=== PATIENT | female | born 1990 | race Caucasian/White ===

== ENCOUNTER 2016-08-25 07:52 | Emergency (ER) | payer SELFPAY ==
[2016-08-25 08:51] LABS: APPEARANCE,URINE CLEAR; BILIRUBIN,URINE NEGATIVE (NEGATIVE); GLUCOSE, URINE NEGATIVE (NEGATIVE); KETONES,URINE NEGATIVE (NEGATIVE); LEUKOCYTE ESTERASE,URINE NEGATIVE (NEGATIVE); NITRITE,URINE NEGATIVE (NEGATIVE); PROTEIN,URINE NEGATIVE (NEGATIVE); URINE SPECIFIC GRAVITY 1.009; UROBILINOGEN,URINE NEGATIVE mg/dL (<2.0)
--- NOTE | 2016-08-25 09:12 | ER Document Report ---
ED General - General Mode of Arrival: Ambulatory Information source: Patient TRAVEL OUTSIDE OF THE [place] IN LAST 30 DAYS: No - HPI Patient complains to provider of: Vaginal Bleeding Onset: Yesterday Onset/Duration: Gradual, Persistent - General Chief Complaint: Vaginal Bleeding Stated Complaint: VAGINAL BLEEDING Notes: Patient is a 26-year-old female presenting to the emergency department concerned of vaginal bleeding that began yesterday. Patient states that she has been spotting lightly with intercourse, but yesterday she had to leave work early due to cramping, and subsequently passed a clot that worried her. Patient states that she believes that she is approximately 7 weeks , she bases this estimation off of her last miscarriage that occurred in mid June. Patient states that she immediately became again. Patient has no other symptoms except for cramping and vaginal bleeding. (LOGAN GONZALEZ) - Related Data Allergies/Adverse Reactions: Penicillins Allergy (Verified 08/25/16 07:59) Past Medical History - General Information source: Patient - Social History Smoking Status: Never Smoker Drug Abuse: None Lives with: Spouse/Significant other Family History: Reviewed & Not Pertinent Patient has suicidal ideation: No Patient has homicidal ideation: No Renal/ Medical History: Denies: Hx Peritoneal Dialysis Review of Systems - Review of Systems Constitutional: No symptoms reported EENT: No symptoms reported Cardiovascular: No symptoms reported Respiratory: No symptoms reported Gastrointestinal: No symptoms reported Genitourinary: No symptoms reported Female Genitourinary: See HPI, , Vaginal discharge - blood clot, Vaginal bleeding, Other - Cramping Musculoskeletal: No symptoms reported Skin: No symptoms reported Hematologic/Lymphatic: No symptoms reported Neurological/Psychological: No symptoms reported -: Yes All other systems reviewed and negative Physical Exam - Vital signs Interpretation: Normal - General General appearance: Appears well, Alert - HEENT Head: Normocephalic, Atraumatic Eyes: Normal Pupils: PERRL - Respiratory Respiratory status: No respiratory distress Chest status: Nontender Breath sounds: Normal Chest palpation: Normal - Cardiovascular Rhythm: Regular Heart sounds: Normal auscultation Murmur: No - Abdominal Inspection: Normal Bowel sounds: Normal Tenderness: Nontender - Back Back: Normal, Nontender - Extremities General upper extremity: Normal inspection, Nontender General lower extremity: Normal inspection, Nontender - Neurological Neuro grossly intact: Yes Cognition: Normal Orientation: AAOx4 Dee Coma Scale Eye Opening: Spontaneous Dee Coma Scale Verbal: Oriented [place] Coma Scale Motor: Obeys Commands [place] Coma Scale Total: 15 Speech: Normal - Psychological Associated symptoms: Normal affect, Normal mood - Skin Skin Temperature: Warm Skin Moisture: Dry Skin Color: Normal Course - Re-evaluation Re-evalutation: 08/25/16 11:26 I personally performed the services described in the documentation, reviewed and edited the documentation which was dictated to my scribe in my presence, and it accurately records my words and actions. (GEORGETTE RIOS) - Vital Signs Vital signs: Temp Pulse Resp BP Pulse Ox 98.4 F 72 16 104/67 98 08/25/16 12:05 08/25/16 12:05 08/25/16 12:05 08/25/16 12:05 08/25/16 12:05 - Laboratory Laboratory results interpreted by me: 08/25/16 09:11 Beta HCG, Quant 19.02 H Procedures - Pelvic Exam Pelvic exam Time completed: 08:22 Witnessed by: Elizabeth Titus, LILY, RN - Pelvic Exam Pelvic exam Notes: 08/25/16 08:22 min amount of dark blood, cervix closed, one blood clot noted (LOGAN GONZALEZ) Discharge - Discharge Clinical Impression: probable miscarriage Condition: Stable Disposition: HOME, SELF-CARE Additional Instructions: Vaginal Bleeding in You are having an episode of abnormal bleeding. Causes of abnormal vaginal bleeding can include miscarriage or tubal , tumors such as cancer or benign fibroids, medication effects, or hormone imbalance. Testing can eliminate unsuspected , tumors, or infection as a cause. "Dysfunctional uterine bleeding" is due to hormone imbalance, and is especially common at times when the normal cycle is disturbed -- whether by recent , use of control pills or hormones, or impending menopause. If the bleeding is innocent, most commonly a short course of hormones is given to restore the uterus to normal. Sometimes, the normal menstrual cycle corrects itself naturally. Sometimes , brief hormone therapy, or even a D&C is required. Your physician will advise you. Treatment for anemia may be required if bleeding is severe. You should rest and avoid intercourse until the bleeding is controlled. Call the doctor or return for re-examination if you feel faint, have increasing pain, or have a major increase in the amount of bleeding. Referrals: [facility] [Provider Group] - Follow up in 3-5 days (Call today to tell them that we ordered a repeat beta hCG blood work to be done in 48 hours and the results will be sent to them. Return for increasing worsening or new symptoms) Scribe Documentation - Scribe Written by Scribe:: Logan Gonzalez 08/25/2016 0817 acting as scribe for :: Alejandro
[2016-08-25 12:07] VITALS: BP 104/67
== END 2016-08-25 12:05 | disposition home or self-care (01) ==
LOC: ER 07:52
DX: N93.9 Abnormal uterine and vaginal bleeding, unspecified (principal); R10.9 Unspecified abdominal pain; Z3A.01 Less than 8 weeks gestation of pregnancy
CPT/HCPCS: 36415; 81001; 84702; 86900; 86901; 99284